=== PATIENT | male | born 1940 | race Caucasian/White ===

== ENCOUNTER 2023-12-04 08:41 | Emergency (ER) | payer MEDICARE, OTHER, SELFPAY ==
[2023-12-04 08:43] VITALS: BP 130/71
[2023-12-04 08:53] VITALS: BP 111/78
[2023-12-04 09:00] VITALS: BP 119/64
--- NOTE | 2023-12-04 09:16 | ED.GENMED ---
History of Present Illness
General
Chief Complaint: Fall
Source: patient and spouse
Time Seen by Provider: 12/04/23 08:53
History of Present Illness
History of Present Illness:
83-year-old male presenting to the emergency department for evaluation after he accidentally rolled out of bed last night around 1 AM resulting in left hip pain. Patient states he also thinks he injured the right side of his ribs and does not
believe he struck his head but does note he is currently taking an anticoagulant medication (medication list in our records says Coumadin but patient states he is on Xarelto). Patient states he was able to ambulate following the fall and was able
to walk down his stairs this morning but states if he feels like he takes too big of a step he has worsening pain. Patient has no other concerns at this time.
Past History
Past History
ED Past Medical History: Cancer and Other (DVT)
ED Past Surgical History: Orthopedic and Urological
Social History
Tobacco: Former smoker
Alcohol: None
Drug: None
Personal:
Living: with family
Review of Systems
Review of Systems
All Other Systems: ROS reviewed and negative except as documented in HPI and ROS
Phy Exam
Physical Exam
Physical Exam:
GENERAL: Alert , in no apparent distress
Head: Normocephalic atraumatic
EYE: conjunctiva clear
NECK: Supple, no midline tenderness
ENT: o/p clr, mmm.
CARDIAC: Regular rate and rhythm
LUNGS: Clear breath sounds bilaterally, no acute respiratory distress, no wheezes/rales/rhonchi, no focal rib pain
NEUROLOGICAL: Alert and oriented x 3
SKIN: Warm and dry, skin intact.
MUSCULOSKELETAL: Left lower extremity: Sitting in normal position. There is no external or internal rotation and no shortening. Patient allows for full at passive range of motion including internal and external rotation with minimal discomfort.
He notes that during active range of motion with forward flexion as well causes him the most discomfort. Extremities are otherwise warm and well-perfused and neurovascularly intact.
PSYCH: Normal and appropriate interaction.
Scores
Heart Failure Risk
Heart Failure Risk Score: Not Applicable
Heart Score for Chest Pain Patients
STEMI patient?: Not applicable
Withdrawal Assessment of Alcohol
Withdrawal Assessment Completed?: Not applicable
Course
Orders/Labs/Results
Orders:
Orders
12/04/23 09:08
CR Hip - LT w/wo Pel 2-3 Vw* Urgent
Comment:
Reason For Exam: fall from bed, left hip/pelvis pain
Include a pelvis x-ray?: Yes
CR Ribs-right 3 Vw W/pa Chest* Urgent
Comment:
Reason For Exam: fall from bed, right proximal rib pain
12/04/23 09:09
CT Head W/o Iv Contrast Urgent
Comment:
Reason For Exam: fall. ? head injury, on thinners
Vital Signs
Initial and Last Documented VS:
Initial Vital Signs
Pulse Resp BP Pulse Ox
78 16 130/71 99
12/04/23 08:43 12/04/23 08:43 12/04/23 08:43 12/04/23 08:43
Last Documented Vital Signs
Pulse Resp BP Pulse Ox
78 16 130/71 99
12/04/23 08:43 12/04/23 08:43 12/04/23 08:43 12/04/23 08:43
MDM/Problems Addressed
Differential Diagnosis Includes:
Accidental fall, contusion, left hip fracture, pelvic fracture, rib contusion, rib fracture
MDM/Problems Addressed:
83-year-old male presenting to the emergency department for evaluation after he experienced an accidental fall from bed yesterday evening. Patient's biggest concern was left hip pain. There is no abnormalities on physical exam but given patient's
age and mechanism will obtain an x-ray to further evaluate. X-ray of the ribs was also ordered and due to patient being on an anticoagulant with potential head strike I did obtain a CT of the head.
*Radiology
Radiology exam reviewed: preliminary read by ED provider (no rib fracture or hip/pelvis fracture) and radiology read reviewed
*Pulse Oximetry
Patient hypoxic: no
*Critical Care Note
Total Time (30-74mins, 75-104mins- exclusive of procedures): Not Applicable
Patient Management
Escalation/DeEscalation of care consider admission/obs:
Patients imaging without any acute pathologies. Feels comfortable being discharged home. He has a walker at home he can use if needed. Aware of return precautions to the ED.
ED Attending Note
-
Portions of this chart may have been created with voice recognition software.� Occasional wrong word or��sound alike� substitutions may have occurred due to the inherent limitations of voice recognition software.
Discharge Plan
Departure
Patient Disposition: Home (Routine Discharge)
Date of Disposition: 12/04/23
Time of Disposition: 11:44
Patient with high blood pressure during this ER visit?: No
Discharge Problem:
Fall from bed, Hip pain, left, Rib pain on right side
Instructions: Preventing falls in adults
Prescriptions:
No Action
Vitamin B12 750 MG Tab
750 mg PO DAILY
ascorbic acid (vitamin C) [Vitamin C] 1,000 MG tablet
1,000 mg PO DAILY
calcium citrate-vitamin D3 [Calcium Citrate + D] 1 EACH tablet
1 ea PO TID
Vitamin D3 25 MG Tab
25 mg PO DAILY
mupirocin 1 APPLIC ointment
1 applic intranasal BID Qty: 1 0RF
Patient Comments:
patient saerted the mupirocin treatment on 07/12/2019 in the morning. last dose was 07/15/2019at 0500.
sennosides [senna] 1 TABLET tablet
2 tab PO BID 0RF
acetaminophen 325 MG tablet
650 mg PO Q4HWA 0RF
magnesium hydroxide 30 ML suspension
30 ml PO DAILYPRN PRN (Reason: constipation) 0RF
docusate sodium 100 MG capsule
100 mg PO BID 0RF
oxycodone 5 MG tablet
5 mg PO Q6HPRN PRN (Reason: moderate-severe pain) Qty: 35 0RF
Rx Instructions:
1 tab moderate pain or 2 if pain severe
Dx total joint replacement
ongoing therapy
warfarin [Jantoven] 5 MG tablet
5 mg PO TONIGHT AT 1800 Qty: 50 1RF
Rx Instructions:
TAKE 1 TAB (5MG) TONIGHT AND 1/2 TAB (2.5MG) MON NIGHT 07/17-THEN ADVSIED BY DR HADDAD TH
Referrals:
Yajaira Jose CRNP [Family Provider] -
Interventions
Interventions:
*Risk Screen - Suicide Last Done: 12/04/23 09:20
*General Assessment Last Done: 12/04/23 09:12
*Neglect/Abuse Screening Last Done: 12/04/23 09:20
*ED COVID-19 Vaccine History Last Done: 12/04/23 08:43
ED-Musculoskeletal Assessment Last Done: 12/04/23 09:17
ED- Neurological Assessment Last Done: 12/04/23 09:17
ED-Skin Assessment Last Done: 12/04/23 09:17
Discharge Date and Time
Print Language: KYRGYZ
== END 2023-12-04 12:22 | disposition home or self-care (01) ==
LOC: EMR 08:41
PROVIDERS: EMERGENCY PHYSICIAN Emergency Medicine; FAMILY PHYSICIAN Nurse Practitioner
DX: M25.552 Pain in left hip (principal); M25.551 Pain in right hip; W06.XXXA Fall from bed, initial encounter
CPT/HCPCS: 99284; 70450; 71101; 73502

== ENCOUNTER → 2023-12-13 13:26 | Outpatient (REF) | payer MEDICARE, OTHER, SELFPAY | LOC: HWRAD 13:26 | PROVIDERS: ATTENDING PHYSICIAN Specialist; FAMILY PHYSICIAN Nurse Practitioner | DX: N13.30 Unspecified hydronephrosis (principal) | CPT/HCPCS: 76770 ==

== ENCOUNTER 2024-01-11 06:35 | Day surgery (SDC) | payer MEDICARE, OTHER, SELFPAY ==
--- NOTE | 2024-01-09 15:12 | PTCARENOTE ---
[facility]arg[facility] office notified of patients 01/08 [id number]; Creat-1.9 and GFR 34.57
[2024-01-11] VITALS (11 sets, daily range): BP systolic 104–169; BP diastolic 69–109; BMI 22.3
[2024-01-11] MEDS: NORMOSOL-R 1000 IV (10:36)
[2024-01-11] MEDS: Pyridium 200 MG PO (10:39)
== END 2024-01-11 14:31 | disposition home or self-care (01) ==
LOC: SDS 06:35
PROVIDERS: ATTENDING PHYSICIAN Specialist; FAMILY PHYSICIAN Nurse Practitioner
DX: N13.30 Unspecified hydronephrosis (principal); N13.4 Hydroureter; N32.9 Bladder disorder, unspecified
CPT/HCPCS: 52332; 74420; 76000; C1758; C2617

== ENCOUNTER → 2024-02-15 10:39 | Outpatient (REF) | payer MEDICARE, OTHER, SELFPAY ==
[2024-02-15 12:35] LABS: Blood Urea Nitrogen 47 mg/dl (9-20); Carbon Dioxide 26 mmol/L (22-30); Chloride 101 mmol/L (98-107); Glucose 96 mg/dl (70-99); Potassium 4.5 mmol/L (3.5-5.1); Sodium 144 mmol/L (135-145); eGFR 34.57
== END ==
LOC: HWLAB 10:39
PROVIDERS: ATTENDING PHYSICIAN Specialist; FAMILY PHYSICIAN Nurse Practitioner
DX: N21.0 Calculus in bladder (principal)
CPT/HCPCS: 36415; 80048; 88112

== ENCOUNTER → 2024-03-14 11:50 | Outpatient (REF) | payer MEDICARE, OTHER, SELFPAY ==
[2024-03-14 15:40] LABS: Blood Urea Nitrogen 39 mg/dl (9-20); Calcium 9.4 mg/dl (8.4-10.2); Carbon Dioxide 27 mmol/L (22-30); Chloride 104 mmol/L (98-107); Glucose 94 mg/dl (70-99); Potassium 4.1 mmol/L (3.5-5.1); Sodium 144 mmol/L (135-145); eGFR 36.89
== END ==
LOC: HWLAB 11:50
PROVIDERS: ATTENDING PHYSICIAN Specialist; FAMILY PHYSICIAN Internal Medicine; REFERRING PHYSICIAN Internal Medicine
DX: N13.30 Unspecified hydronephrosis (principal)
CPT/HCPCS: 36415; 80048

== ENCOUNTER → 2024-05-03 08:50 | Outpatient (REF) | payer MEDICARE, OTHER, SELFPAY ==
[2024-05-03 10:44] LABS: Mean Corp Hgb Conc. 32.4 g/dL (33.0-37.0); Mean Corpuscular Hgb 31.5 pg (27.0-31.0); Mean Corpuscular Volume 97.1 fL (80.0-94.0); Mean Platelet Volume 10.1 fL (7.4-10.4); Platelet Count 255 10^3/uL (130-400); Red Blood Cell Count 3.81 10^6/uL (4.70-6.10); Red Cell Dist. Width 12.7 % (11.5-14.5); White Blood Cell Count 8.4 10^3/uL (4.8-10.8)
== END ==
LOC: SDSPAT 08:50
PROVIDERS: ATTENDING PHYSICIAN Specialist; FAMILY PHYSICIAN Physician Assistant
DX: Z01.818 Encounter for other preprocedural examination (principal)
CPT/HCPCS: 36415; 85027

== ENCOUNTER 2024-05-07 07:00 | Day surgery (SDC) | payer MEDICARE, OTHER, SELFPAY ==
[2024-05-03 10:42] VITALS: BMI 23.4
[2024-05-07] VITALS (7 sets, daily range): BP systolic 134–156; BP diastolic 77–92; BMI 23.4
== END 2024-05-07 12:32 | disposition home or self-care (01) ==
LOC: SDS 07:00
PROVIDERS: ATTENDING PHYSICIAN Specialist
DX: N13.5 Crossing vessel and stricture of ureter without hydronephrosis (principal)
CPT/HCPCS: 52354; 74420; 76000; C1894

== ENCOUNTER → 2025-04-21 09:57 | Outpatient (REF) | payer MEDICARE, OTHER, SELFPAY | LOC: HWRAD 09:57 | DX: M81.8 Other osteoporosis without current pathological fracture (principal); M85.80 Other specified disorders of bone density and structure, unspecified site | CPT/HCPCS: 77080 ==